=== PATIENT | female | born 1995 | race Caucasian/White ===

== ENCOUNTER 2022-09-08 06:56 | Emergency (ER) | payer OTHER ==
[~2022-09-08] VITALS: Ht 170.2 cm; Wt 61.8 kg
[~2022-09-08 06:56] MED LIST: ACYCLOVIR200 MG PO; FLOMAX0.4 MG PO; KETOROLAC TROME10 MG PO; ONDANSETRON ODT4 MG PO; birth control pills
[2022-09-08] MEDS ORDERED: IBUPROFEN200 MG PO (07:48)
[2022-09-08] MEDS ORDERED: MACROBID 100 M100 MG PO (07:48)
== END 2022-09-08 07:52 | disposition home or self-care (01) ==
LOC: FSED 07:24
DX: R30.0 Dysuria (principal); N39.0 Urinary tract infection, site not specified; R35.0 Frequency of micturition; Z87.442 Personal history of urinary calculi
CPT/HCPCS: 81003; 81025; 99283